=== PATIENT | male | born 1960 | race Caucasian/White ===

== ENCOUNTER 2016-09-08 19:06 | Emergency (ER) | payer MEDICAID ==
[~2016-09-08] VITALS: Ht 175.3 cm; Wt 89.4 kg
[2016-09-08 19:29] VITALS: BP 143/85
--- NOTE | 2016-09-08 21:00 | NUR ---
Note undone in EDM - 09/08/16 at 2154 by YENIFER 56/M PRESENT TO ER C/O LT TESTICULAR PAIN x ONE WEEK. PT DENIES INJURY OR TRAUMA. POS SWELLING. PAIN 7/10 NON-RADIATING. PT DENIES DISCHARGE OR HEMATURIA. PT STATES HE HAD SEXUAL CONTACT LAST WEEK. PT WAS TAKING OTC ADVIL PRIOR TO ER VISIT. . PT DENIES N/V/D; SKIN IS PINK/WARM/DRY; AAOX4 WITH EVEN AND STEADY GAIT; LUNGS CLEAR BL; HR EVEN AND REGULAR; PT DENIES ANY FEVER, CP, SOB, OR COUGH AT THIS TIME; PATIENT STATES PAIN OF 7/10 AT THIS TIME; VSS; PATIENT POSITIONED FOR COMFORT; HOB ELEVATED; BEDRAILS UP X2; BED DOWN. ER MD MADE AWARE OF PT STATUS.
--- NOTE | 2016-09-08 21:18 | NUR ---
TO ER BED 3
--- NOTE | 2016-09-08 21:40 | NUR ---
56/M PRESENT TO ER C/O LT TESTICULAR PAIN x ONE WEEK. PT DENIES INJURY OR TRAUMA. POS SWELLING. PAIN 7/10 NON-RADIATING. PT DENIES DISCHARGE OR HEMATURIA. PT STATES HE HAD SEXUAL CONTACT LAST WEEK. PT WAS TAKING OTC ADVIL PRIOR TO ER VISIT. . PT DENIES N/V/D; SKIN IS PINK/WARM/DRY; AAOX4 WITH EVEN AND STEADY GAIT; LUNGS CLEAR BL; HR EVEN AND REGULAR; PT DENIES ANY FEVER, CP, SOB, OR COUGH AT THIS TIME; PATIENT STATES PAIN OF 7/10 AT THIS TIME; VSS; PATIENT POSITIONED FOR COMFORT; HOB ELEVATED; BEDRAILS UP X2; BED DOWN. ER MD MADE AWARE OF PT STATUS.
[2016-09-08 22:47] VITALS: BP 140/86
--- NOTE | 2016-09-08 22:48 | NUR ---
Patient discharged with v/s stable. Written and verbal after care instructions given and explained. Patient alert, oriented and verbalized understanding of instructions. Ambulatory with steady gait. All questions addressed prior to discharge. ID band removed. Patient advised to follow up with PMD. Rx of DOXYCYCLINE, TRAMADOL HYDROCHLORIDE AND MOTRIN given. Patient educated on indication of medication including possible reaction and side effects. Opportunity to ask questions provided and answered.
== END 2016-09-08 22:47 | disposition home or self-care (01) ==
LOC: MED 19:06
DX: N45.3 Epididymo-orchitis (principal)
CPT/HCPCS: 76870; 81002; 82948; 99284